=== PATIENT | female | born 1940 | race Caucasian/White ===

== ENCOUNTER → 2021-12-18 | Outpatient (CLI) | payer MEDICARE, OTHER | END | disposition home or self-care (01) | LOC: COVID19 15:02 | PROVIDERS: ATTEND Internal Medicine | DX: Z20.822 Contact with and (suspected) exposure to COVID-19 (principal) ==

== ENCOUNTER 2025-04-08 12:52 | Emergency (ER) | payer MEDICARE, OTHER ==
[~2025-04-08] VITALS: Ht 162.5 cm; Wt 86.2 kg
[2025-04-08 13:54] LABS: HEMATOCRIT 47.2 % (37.0-47.0); MEAN CELL VOLUME 92.4 fl (81.0-99.0); MEAN CORPUSCULAR HGB 29.5 pg (27.0-31.0); MEAN PLATELET VOLUME 10.8 fl (9.6-12.3); PLATELET COUNT AUTOMATED 227 10*3/uL (130-400); RED BLOOD COUNT 5.11 10*6/uL (4.10-5.10); RED CELL DISTRI WIDTH 16.1 % (0-14.5); WHITE BLOOD COUNT 9.6 10*3/uL (4.8-10.8)
[2025-04-08 13:55] LABS: MANUAL DIFF REFLEX YES
[2025-04-08 14:13] LABS: POTASSIUM 3.7 mmol/L (3.4-5.1)
[2025-04-08 14:23] LABS: TOTAL CELLS COUNTED 100 #CELLS
[2025-04-08 14:24] LABS: PLATELET SUFFICIENCY NORMAL (NORMAL)
[2025-04-08] MEDS ORDERED: SERTRALINE HYD100 MG PO (14:34)
[2025-04-08] MEDS ORDERED: LEVOTHYROXINE137 MCG PO (14:35)
[2025-04-08] MEDS ORDERED: DILTIAZEM 24HR180 MG PO (14:36)
[2025-04-08] MEDS ORDERED: LORAZEPAM0.5 M1 PO (14:37)
[2025-04-08] MEDS ORDERED: BREO ELLIPTA 11 EACH INH (14:37)
[2025-04-08 15:26] LABS: BILIRUBIN Negative (Negative); BLOOD Negative (Negative); CLARITY Clear (Clear); COLOR Dark Yellow (Yellow); GLUCOSE Negative (Negative); KETONE Trace (Negative); LEUKO ESTERASE 2+ (Negative); NITRITE Negative (Negative); PH 5.5 (4.5-8.0)
[2025-04-08 15:41] LABS: BACTERIA 1+; CALCIUM OXALATE CRYSTALS Trace; EPITHELIAL CELLS 16-20; HYALINE CAST 0-2; RBC 0-2 rbc/hpf (0-2)
[2025-04-08] MEDS ORDERED: VIBRAMYCIN100 MG PO (15:48)
[2025-04-08] MEDS ORDERED: PREDNISONE20 M1 PO (15:48)
[2025-04-08] MEDS ORDERED: predniSONE 20 MG TAB PO ONE (15:50)
[2025-04-08] MEDS ORDERED: Doxycycline Hyclate 100 MG CAPSULE PO ONE (15:50)
[2025-04-08] MEDS ORDERED: Albuterol Sulf/Ipratropium 3 ML VIAL NEB ONE (15:50)
[2025-04-08] MEDS ORDERED: VENT7GM INH (15:55)
== END 2025-04-08 16:17 | disposition home or self-care (01) ==
LOC: ED 12:52
PROVIDERS: Nurse Practitioner Family
DX: J98.4 Other disorders of lung (principal); J44.9 Chronic obstructive pulmonary disease, unspecified; E03.9 Hypothyroidism, unspecified; Z20.822 Contact with and (suspected) exposure to COVID-19; Z79.899 Other long term (current) drug therapy; Z88.0 Allergy status to penicillin; Z88.8 Allergy status to other drugs, medicaments and biological substances; Z91.041 Radiographic dye allergy status

== ENCOUNTER 2025-09-18 15:14 | Emergency (ER) | payer MEDICARE, OTHER ==
[~2025-09-18] VITALS: Ht 162.5 cm; Wt 84.4 kg
[~2025-09-18 15:14] MED LIST: BREO ELLIPTA 11 EACH INH; DILTIAZEM 24HR180 MG PO; LEVOTHYROXINE137 MCG PO; LORAZEPAM0.5 M1 PO; PREDNISONE20 M1 PO; SERTRALINE HYD100 MG PO; VENT7GM INH; VIBRAMYCIN100 MG PO
[2025-09-18 16:21] LABS: BASO # 0.1 10*3/uL (0.0-0.1); BASO % 0.6 % (0.0-1.0); EOS # 0.2 10*3/uL (0.0-0.4); EOS % 1.6 % (1.0-4.0); MEAN CELL VOLUME 91.3 fl (81.0-99.0); MEAN CORPUSCULAR HGB 28.9 pg (27.0-31.0); MEAN PLATELET VOLUME 10.2 fl (9.6-12.3); MONO # 1.3 10*3/uL (0.1-1.0); MONO % 13.0 % (3.0-9.0); NEUT # 5.8 10*3/uL (2.3-7.9); NEUT % 57.9 % (47.0-73.0); NUCLEATED RED BLOOD CELL 0.0 % (0.0-0.0); NUCLEATED RED BLOOD CELL 0.0 10*3/uL (0.0-0.0); PLATELET COUNT AUTOMATED 299 10*3/uL (130-400); RED CELL DISTRI WIDTH 14.9 % (0-14.5)
[2025-09-18 16:41] LABS: BUN 14.0 mg/dl (9-23); SGPT/ALT 14.0 U/L (5-49)
[2025-09-18] MEDS ORDERED: diphenhydrAMINE hydrochloride 50 MG/ML VIAL IV ONE (17:00)
[2025-09-18] MEDS ORDERED: SODIUM CHLORIDE 0.9% 1,000 ML IV ONE (17:05)
[2025-09-18] MEDS ORDERED: IOHEXOL 300 MG/ML 100 ML VIAL IV ONE (17:20)
[2025-09-18 17:23] LABS: BILIRUBIN Negative (Negative); BLOOD Negative (Negative); CLARITY Clear (Clear); COLOR Yellow (Yellow); KETONE Negative (Negative); LEUKO ESTERASE 2+ (Negative); NITRITE Negative (Negative); PH 5.5 (4.5-8.0); SPECIFIC GRAVITY 1.015 (1.001-1.030); UROBILINOGEN 0.2 E.U./dl (0.0-1.0)
[2025-09-18 17:34] LABS: EPITHELIAL CELLS TNTC; WBC 21-30 wbc/hpf (0-5)
[2025-09-18] MEDS ORDERED: CIPROFLOXACIN 200 ML IV ONE (18:30)
[2025-09-18] MEDS ORDERED: CIPRO500 MG PO (20:05)
== END 2025-09-18 20:11 | disposition home or self-care (01) ==
LOC: ED 15:14
DX: N39.0 Urinary tract infection, site not specified (principal); R19.7 Diarrhea, unspecified; N20.0 Calculus of kidney; J44.9 Chronic obstructive pulmonary disease, unspecified; E03.9 Hypothyroidism, unspecified; Z88.0 Allergy status to penicillin; Z88.8 Allergy status to other drugs, medicaments and biological substances